=== PATIENT | female | born 1960 | race Caucasian/White ===

== ENCOUNTER → 2017-03-01 | Outpatient (CLI) | payer OTHER ==
[~2017-03-01] MED LIST: CLON.5 PO; MIRTA15 PO; MONT10TA2 PO; PANT20 PO; PROM25SU8 PO; SUCR1TAB6 PO; VENL75XR PO; symbicort
--- NOTE | 2017-03-01 12:25 | RADRPT ---
EXAM DATE/TIME: 03/01/2017 11:48 [place] COMPARISON: No previous studies available for comparison. INDICATIONS : Hypertension MEDICAL HISTORY : Hypertension. Asthma SURGICAL HISTORY : None. ENCOUNTER: Initial ACUITY: 1 day PAIN SCORE: 0/10 LOCATION: chest FINDINGS: PA and lateral views of the chest demonstrate the lungs to be symmetrically aerated without evidence of mass, infiltrate or effusion. The cardiomediastinal contours are unremarkable. Osseous structure s are intact. CONCLUSION: No acute disease. James Powell MD on March 01, 2017 at 12:22 Board Certified Radiologist. This report was verified electronically.
== END ==
LOC: HRAD 11:24
DX: I10 Essential (primary) hypertension (principal)
CPT/HCPCS: 71020